=== PATIENT | female | born 1965 | race Caucasian/White ===

== ENCOUNTER 2022-09-19 08:10 | Day surgery (SDC) | payer OTHER ==
[~2022-09-19] VITALS: Ht 149.9 cm; Wt 175.6 kg
--- NOTE | 2022-09-19 08:58 | NUR ---
09/19/22 0858 Beverly Rausch PRP DRAWN FROM IV PER DR'S ORDERS. PT TOLERATED IV START AND PRP DRAW WELL.
[2022-09-19] MEDS ORDERED: LISI20 PO (09:02)
[2022-09-19] MEDS ORDERED: TOPI100 PO (09:03)
[2022-09-19] MEDS ORDERED: ZOLP5 PO (09:03)
[2022-09-19] MEDS ORDERED: VENLAFAXINE HCL50 MG PO (09:05)
[2022-09-19] MEDS ORDERED: ALBU90OI INH (09:06)
--- NOTE | 2022-09-19 10:25 | NUR ---
09/19/22 1025 Tereso Lindsey ROPIVACAINE 0.5% 30 MLS MIXED W/ EPI 0.15ML (1MG/ML) PER ODRER TO MAKE ROPIVACAINE 0.5% 1:200,000 FOR INJECTION AT OPSITE BY DR TURNER.
--- NOTE | 2022-09-19 11:52 | NUR ---
09/19/22 1152 Hermelinda Quintana PT IN RECLINER EATING CRACKERS AND DRINKING PEPSI WITH NO NAUSEA. MEDICATED WITH FENTANYL 25MCG IV X1 FOR 6/10 PAIN IN R THIGH.
== END 2022-09-19 12:20 | disposition home or self-care (01) ==
LOC: ORSCSDS 08:10
PROVIDERS: Orthopaedic Surgery
PROC: 0MBL0ZZ Excision of Right Hip Bursa and Ligament, Open Approach (ICD-10-PCS; principal; 2022-09-19 09:30)
DX: M70.61 Trochanteric bursitis, right hip (principal); I10 Essential (primary) hypertension; J45.909 Unspecified asthma, uncomplicated; E66.9 Obesity, unspecified; Z68.35 Body mass index [BMI] 35.0-35.9, adult; Z79.899 Other long term (current) drug therapy; Z85.3 Personal history of malignant neoplasm of breast
CPT/HCPCS: A9270; J0171; J0690; J1100; J2250; J2405; J2704; J2795; J3010; J7120

== ENCOUNTER → 2023-01-27 | Outpatient (CLI) | payer OTHER ==
[~2023-01-27] MED LIST: ALBU90OI INH; LISI20 PO; TOPI100 PO; VENLAFAXINE HCL50 MG PO; ZOLP5 PO
[2023-01-29 14:09] LABS: HPV 16 Negative (Negative); HPV 18 Negative (Negative); HPV OTHER HR TYPES Negative (Negative)
== END | disposition home or self-care (01) ==
LOC: LAB SHORT 10:15 → LAB 10:15
PROVIDERS: Nurse Practitioner Family
DX: Z01.419 Encounter for gynecological examination (general) (routine) without abnormal findings (principal); Z11.51 Encounter for screening for human papillomavirus (HPV)
CPT/HCPCS: 87624; G0145

== ENCOUNTER 2023-07-22 11:26 | Emergency (ER) | payer OTHER ==
[~2023-07-22] VITALS: Ht 149.9 cm; Wt 77.1 kg
[2023-07-22 12:10] VITALS: BP 146/89
[2023-07-22] MEDS ORDERED: Zithromax250 MG PO (12:13)
[2023-07-22] MEDS ORDERED: Prednisone20 MG PO (12:13)
== END 2023-07-22 12:18 | disposition home or self-care (01) ==
LOC: ER 11:26
DX: J44.1 Chronic obstructive pulmonary disease with (acute) exacerbation (principal); Z79.899 Other long term (current) drug therapy; Z79.52 Long term (current) use of systemic steroids
CPT/HCPCS: 71046; 99283-25

== ENCOUNTER 2023-10-18 10:31 | Emergency (ER) | payer OTHER ==
[~2023-10-18] VITALS: Ht 162.6 cm; Wt 90.7 kg
[~2023-10-18 10:31] MED LIST changes: +Prednisone20 MG PO; +Zithromax250 MG PO
[2023-10-18 10:35] VITALS: BP 187/92
[2023-10-18] MEDS ORDERED: CYMBALTA30 M2 PO (10:37)
== END 2023-10-18 10:40 | disposition home or self-care (01) ==
LOC: ER 10:31
DX: H92.03 Otalgia, bilateral (principal); J44.9 Chronic obstructive pulmonary disease, unspecified; Z79.899 Other long term (current) drug therapy
CPT/HCPCS: 99282

== ENCOUNTER → 2024-06-22 | Outpatient (CLI) | payer OTHER ==
[~2024-06-22] MED LIST changes: +CYMBALTA30 M2 PO
[2024-06-23 11:16] LABS: Stool Occult Bld Immuno 1 Positive (NEGATIVE)
== END | disposition home or self-care (01) ==
LOC: LAB SHORT 15:34 → LAB 15:34
PROVIDERS: Registered Nurse
DX: Z12.11 Encounter for screening for malignant neoplasm of colon (principal)
CPT/HCPCS: G0328

== ENCOUNTER 2024-12-14 09:22 | Day surgery (SDC) | payer MEDICARE, OTHER ==
[~2024-12-14] VITALS: Ht 149.9 cm; Wt 81.6 kg
[~2024-12-14 09:22] MED LIST changes: +Lactated Ringer's 1,000 ML IV ONE; +propofoL 50 ML IV ONE
[2024-12-14] MEDS ORDERED: OLME20 PO (09:35)
[2024-12-14] MEDS ORDERED: PRAZ2 (09:35)
[2024-12-14] MEDS ORDERED: METO50ER (09:35)
[2024-12-14] MEDS ORDERED: ZOLP10 PO (09:36)
[2024-12-14] MEDS ORDERED: SUMA25 PO (09:36)
[2024-12-14] MEDS ORDERED: Lactated Ringer's 1,000 ML IV ONE (09:55)
[2024-12-14] MEDS ORDERED: Midazolam HCL 1 MG/ML 5MLVIAL ONE (10:54)
[2024-12-14 11:49] VITALS: BP 149/80
== END 2024-12-14 11:50 | disposition home or self-care (01) ==
LOC: ORSCSDS 09:22
PROVIDERS: Specialist
PROC: 0DBM8ZX Excision of Descending Colon, Via Natural or Artificial Opening Endoscopic, Diagnostic (ICD-10-PCS; principal; 2024-12-14 10:45)
PROC: 0DBE8ZX Excision of Large Intestine, Via Natural or Artificial Opening Endoscopic, Diagnostic (ICD-10-PCS; principal; 2024-12-14 10:45)
DX: K62.5 Hemorrhage of anus and rectum (principal); R19.4 Change in bowel habit; D12.4 Benign neoplasm of descending colon; K64.4 Residual hemorrhoidal skin tags; K64.8 Other hemorrhoids; F43.10 Post-traumatic stress disorder, unspecified; F32.A Depression, unspecified; I10 Essential (primary) hypertension; Z79.899 Other long term (current) drug therapy
CPT/HCPCS: 88305; J2250; J2704; J7120